=== PATIENT | male | born 1995 | race Caucasian/White ===

== ENCOUNTER → 2019-05-04 08:18 | Outpatient (BNVA) | payer SELFPAY | PROVIDERS: Referring Provider Nurse Practitioner Family; Visit Provider Specialist | DX: R41.3 Other amnesia (principal); V89.2XXD Person injured in unspecified motor-vehicle accident, traffic, subsequent encounter; Y93.9 Activity, unspecified | CPT/HCPCS: 96116; 99204 ==

== ENCOUNTER → 2019-05-06 14:28 | Outpatient (BNVA) | payer SELFPAY | PROVIDERS: Visit Provider Specialist | DX: S06.9X9D Unspecified intracranial injury with loss of consciousness of unspecified duration, subsequent encounter (principal); X58.XXXD Exposure to other specified factors, subsequent encounter | CPT/HCPCS: 95816 ==

== ENCOUNTER 2019-05-07 15:08 | Outpatient (CLI) | payer SELFPAY ==
--- NOTE | 2019-05-07 16:08 | MR_ITS ---
WS: [id number] MRI BRAIN WITHOUT CONTRAST HISTORY: Traumatic brain injury COMPARISON: None available. TECHNIQUE: Diffusion imaging, multiplanar T1, T2 and FLAIR imaging obtained. No evidence for acute infarct or hemorrhage. Eastman-white matter differentiation is normal. Tiny focus of increased signal in the posterior RIGHT frontal lobe from an old ischemic event. There are numerous hemosiderin depositions predominantly involving the cortex of the RIGHT cerebrum. There is hemosiderin in the frontal, temporal and parietal lobes. A few more prominent areas of remot e blood products and tiny areas of prior hemorrhage. No significant volume loss or scarring otherwise . Ventricles and extra-axial spaces are normal. No inferior displacement of cerebellar tonsils. The sella turcica and pituitary gland are unremarkabl e. Posterior fossa is also unremarkable. Dural venous sinuses and [place] demonstrate no abnormality on this unenhanced studies. Paranasal sinuses: Small amount mucoperiosteal thickening in the LEFT maxillary sinus. Mastoid air cells: Normal. Calvarium and scalp: Intact. MR/MR head wo con* [id number] IMPRESSION: 1. No acute infarct or mass. 2. Numerous foci of hemosiderin deposition on the susceptibility imaging predo minantly throughout the RIGHT subcortical white matter of the frontal, temporal and parietal lobes. Consistent with an old injury with posttraumatic hemorrhag es. 3. No significant volume loss at this time.
== END 2019-05-07 15:09 | disposition home or self-care (01) ==
LOC: RADWPI 15:17
PROVIDERS: Visit Provider Specialist
DX: S06.9X9A Unspecified intracranial injury with loss of consciousness of unspecified duration, initial encounter (principal); X58.XXXA Exposure to other specified factors, initial encounter
CPT/HCPCS: 70551

== ENCOUNTER → 2019-07-15 14:47 | Outpatient (BNVA) | payer SELFPAY | PROVIDERS: Visit Provider Specialist | DX: S06.9X9A Unspecified intracranial injury with loss of consciousness of unspecified duration, initial encounter (principal); X58.XXXA Exposure to other specified factors, initial encounter | CPT/HCPCS: 99214 ==

== ENCOUNTER → 2020-01-05 14:53 | Outpatient (BNVA) | payer OTHER, SELFPAY | PROVIDERS: Visit Provider Nurse Practitioner Family | DX: Z11.59 Encounter for screening for other viral diseases (principal); Z20.828 Contact with and (suspected) exposure to other viral communicable diseases | CPT/HCPCS: 87635 ==

== ENCOUNTER → 2020-03-15 11:26 | Outpatient (BNVA) | payer OTHER, SELFPAY | PROVIDERS: Visit Provider Nurse Practitioner Family | DX: Z20.828 Contact with and (suspected) exposure to other viral communicable diseases (principal) | CPT/HCPCS: 87635 ==

== ENCOUNTER → 2020-05-06 09:24 | Outpatient (BNVA) | payer OTHER, SELFPAY | PROVIDERS: Visit Provider Nurse Practitioner Family | DX: Z20.828 Contact with and (suspected) exposure to other viral communicable diseases (principal) | CPT/HCPCS: 87635 ==

== ENCOUNTER → 2020-08-22 13:15 | Outpatient (BNVA) | payer SELFPAY | PROVIDERS: Visit Provider Specialist | DX: S06.9X9D Unspecified intracranial injury with loss of consciousness of unspecified duration, subsequent encounter (principal); Y93.9 Activity, unspecified; Z71.89 Other specified counseling | CPT/HCPCS: 99213 ==

== ENCOUNTER 2022-03-01 10:55 | Outpatient (CLI) | payer OTHER, SELFPAY ==
--- NOTE | 2022-03-01 11:14 | CTR_ITS ---
PROCEDURE INFORMATION: Exam: CT Abdomen And Pelvis With Contrast Exam date and time: 03/01/2022 12:26 PM Age: 27 years old Clinical indication: Patient HX: RT flank pain after lifting injury; Additional info: Rlq abdominal pain/r pain on R side TECHNIQUE: Imaging protocol: Computed tomography of the abdomen and pelvis with contrast. Radiation optimization: All CT scans at this facility use at least one of these dose optimization techniques: automated exposure control; mA and/or kV adjustment per patient size (includes targeted exams where dose is matched to clinical indication); or iterative reconstruction. Contrast material: OMNI 350; Contrast volume: 95 ml; Contrast route: INTRAVENOUS (IV); COMPARISON: CT chest abd pel w con* 02/09/2018 4:15 AM RADIATION DOSE METRICS: Total DLP (mGy-cm): 937.7 FINDINGS: Lungs: No acute airspace or pleural disease. Liver: Fatty infiltration of the liver. Gallbladder and bile ducts: Unremarkable gallbladder. Pancreas: No pancreatic mass or ductal dilatation. Spleen: Enlarged spleen measuring 13.1 cm in length. Adrenal glands: Unremarkable adrenals. Kidneys and ureters: Normal renal morphology. No hydronephrosis. Stomach and bowel: Mild wall thickening in the nondistended gastric antrum. Normal caliber of small bowel. Scattered diverticula. Wall thickening in the descending colon, in a pattern of colitis. Appendix: No acute appendicitis. Intraperitoneal space: No significant free fluid. Vasculature: Normal caliber of the abdominal aorta. Lymph nodes: Subcentimeter lymph nodes. Urinary bladder: Circumferential bladder wall thickening. Reproductive: Unremarkable as visualized. Bones/joints: Degenerative change involving the symphysis pubis. Soft tissues: Unremarkable. CT/CT abdomen pelvis w con* [id number] IMPRESSION: 1. Circumferential bladder wall thickening. 2. Wall thickening in the descending colon, in a pattern of colitis. 3. Additional findings as described above.
[2022-03-01] MEDS: iohexol 350 mg/mL 500 mL Btl (per mL) IV (11:28)
[2022-03-01] MEDS: iohexol 350 mg/mL 500 mL Btl (per mL) PO (11:29)
== END 2022-03-01 10:56 | disposition home or self-care (01) ==
LOC: RAD 10:56
PROVIDERS: Visit Provider Nurse Practitioner Family
DX: R10.31 Right lower quadrant pain (principal); R07.81 Pleurodynia
CPT/HCPCS: 74177; Q9967

== ENCOUNTER 2022-05-08 13:32 | Emergency (ER) | payer OTHER, SELFPAY ==
[2022-05-08 13:58] VITALS: BP 123/67; PULSE 75; RESP 16; TEMP 36.7; O2SAT 98
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
[2022-05-08 15:58] VITALS: O2SAT 98
[2022-05-08] MEDS: ketorolac 60 mg/2 mL INJ IM (16:39)
--- NOTE | 2022-05-09 13:56 | DCPLANNER ---
heavy equipment sales manager called patient due to no primary care physician - patient declines at this time, patient is unsure of what his schedule is at this time. heavy equipment sales manager gave patient the phone number to [facility] for patient to call to get something scheduled.
== END 2022-05-08 16:40 | disposition home or self-care (01) ==
PROVIDERS: Emergency Provider Physician Assistant
DX: S09.8XXA Other specified injuries of head, initial encounter (principal); Z87.820 Personal history of traumatic brain injury; V69.20XA Unspecified occupant of heavy transport vehicle injured in collision with unspecified motor vehicles in nontraffic accident, initial encounter
CPT/HCPCS: 70450; 96372; 99284; J1885

== ENCOUNTER → 2022-12-24 11:17 | Outpatient (BNVA) | payer SELFPAY | PROVIDERS: Visit Provider Nurse Practitioner Family | DX: J02.9 Acute pharyngitis, unspecified (principal) | CPT/HCPCS: 87880 ==